=== PATIENT | female | born 1990 | race Caucasian/White ===

== ENCOUNTER 2019-06-02 16:57 | Emergency (ER) | payer OTHER ==
--- NOTE | 2019-06-02 17:58 | RAD ---
EXAM: LEFT ANKLE THREE VIEWS: 06/02/19 HISTORY: Injury from a fall and trip on stairs. FINDINGS/IMPRESSION: No fracture, dislocation, or other significant acute osseous process. POS: RRE
== END 2019-06-02 18:05 | disposition home or self-care (01) ==
LOC: NAV ERS 16:57
DX: S93.402A Sprain of unspecified ligament of left ankle, initial encounter (principal); W10.9XXA Fall (on) (from) unspecified stairs and steps, initial encounter

== ENCOUNTER 2019-06-17 11:57 | Emergency (ER) | payer OTHER ==
[~2019-06-17 11:57] MED LIST: Iopamidol 370 76% 100 ML VIAL ONE
--- NOTE | 2019-06-17 12:57 | RAD ---
EXAM: Chest 2 views: HISTORY: Dyspnea COMPARISON: None. FINDINGS: There is a normal-sized cardiomediastinal silhouette. There is no evidence of consolidation, mass, or pleural effusion. The bones are unremarkable. IMPRESSION: No evidence of acute cardiopulmonary disease
[2019-06-17 13:19] LABS: #Basophils 0.1 thou/uL (0.0-0.2); #Eosinphils 0.2 thou/uL (0.0-0.7); #Lymphocytes 1.3 thou/uL (1.20-3.40); #Monocytes 0.5 thou/uL (0.11-0.59); #Neutrophils 5.3 thou/uL (1.40-6.50); %Basophils 1.1 % (0.0-1.0); %Eosinophils 2.1 % (0.0-10.0); %Lymphocytes 17.8 % (21.0-51.0); %Monocytes 6.8 % (0.0-10.0); %Neutrophils 72.3 % (42.0-75.0); Hemoglobin 13.3 g/dL (12.0-16.0); Mean Corpuscular HGB CONC 32.4 g/dL (32.0-36.0); Mean Corpuscular Hemoglobin 29.3 pg (27.0-31.0); Mean Corpuscular Volume 90.5 fL (78.0-98.0); Mean Platelet Volume 7.4 fL (7.4-10.4); Platelet Count 275 thou/uL (130-400); RBC Distribution Width 11.3 % (11.5-14.5); Red Blood Cell (RBC) Count 4.53 mill/uL (4.20-5.40); White Blood Cell (WBC) Count 7.3 thou/uL (4.8-10.8)
[2019-06-17] MEDS ORDERED: Sodium Chloride 0.9% 1,000 ML ONE (13:28)
[2019-06-17 13:35] LABS: ALT (SGPT) 18 U/L (8-55); AST (SGOT) 20 U/L (5-34); Albumin 3.9 g/dL (3.5-5.0); Alkaline Phosphatase 54 U/L (40-110); Anion Gap 14 mmol/L (10-20); BUN (Urea Nitrogen) 8 mg/dL (7.0-18.7); Bilirubin, Total 0.4 mg/dL (0.2-1.2); Calc. Creatinine Clearance 0 mL/min (70-130); Calcium 9.5 mg/dL (7.8-10.44); Carbon Dioxide 26 mmol/L (22-29); Chloride 102 mmol/L (98-107); Estimated GFR-MDRD 84; Globulin 3.8 g/dL (2.4-3.5); Glucose 81 mg/dL (70-105); Protein, Total 7.7 g/dL (6.0-8.3); Sodium 138 mmol/L (136-145)
[2019-06-17 13:45] LABS: Bilirubin Negative (Negative); Blood, Urine Trace (Negative); Clarity Clear (Clear); Glucose, Urine (Dipstick) Negative (Negative); Leukocyte Small (Negative); Nitrite Negative (Negative); Protein, Urine (Dipstick) Negative (Neg-Trace); Urobilinogen 0.2 mg/dL (Less than 2)
[2019-06-17 13:56] LABS: Pregnancy Test - Urine (BHCG) Negative (Negative); Pregu Control Background? CLEAR/WHITE (CLR/WHITE); Pregu Control Bar Appear? YES (CONTROL BAR); Specific Gravity 1.005 (1.002-1.036)
[2019-06-17 14:02] LABS: Bacteria/HPF Rare-Few HPF (None Seen); RBC/HPF 0-3 HPF (0-3); WBC/HPF 0-3 HPF (0-3)
--- NOTE | 2019-06-17 14:59 | CT ---
CT ANGIOGRAM THORAX WITH IV CONTRAST AND 3-D RECONSTRUCTIONS CLINICAL INDICATION: Dyspnea and shortness of breath with exertion. Reported tachycardia. COMPARISON: None FINDINGS: Pulmonary arteries: There is suboptimal evaluation of the subsegmental pulmonary arteries, but no lindsay ling defects are seen within the central or segmental pulmonary arteries to suggest a pulmonary embolus. Aorta: Normal in caliber without evidence of an aortic dissection Lungs: The lungs are clear. No consolidation or pleural effusion is seen. Mediastinum: No evidence of lymphadenopathy. Thyroid gland: Left lobe of thyroid gland is small in size, but the thyroid gland otherwise demonstra carla a normal CT appearance. Osseous structures: No acute process. Chest wall: No abnormality visualized. Upper abdomen: There is a 1.1 cm rounded enhancing focus in the right hepatic lobe adjacent to the ga llbladder. This cannot be further characterized on this exam. This could represent a hemangioma, but adenoma or FNH is a possibility. IMPRESSION: 1. Small enhancing lesion in the right hepatic lobe which cannot be accurately characterized on this single arterial phase of imaging. This may represent a hemangioma, adenoma, or possibly FNH. However, follow-up CT scan with 3 phase im aging versus MRI is recommended for further characterization. 2. No evidence of a pulmonary embolus involving the central or segmental pulmonary arteries. Subsegme ntal pulmonary arteries are not well evaluated.
== END 2019-06-17 15:25 | disposition home or self-care (01) ==
LOC: NAV ERS 11:57
DX: R00.0 Tachycardia, unspecified (principal); R06.00 Dyspnea, unspecified
CPT/HCPCS: 71046; 71275; 80053; 81003; 81015; 81025; 84443; 84484; 85025; 85379; 93005; 94760; 96360; J7050; Q9967